=== PATIENT | female | born 1950 | race Caucasian/White ===

== ENCOUNTER 2018-07-28 16:57 | Emergency (ER) | payer OTHER ==
--- NOTE | 2018-07-28 17:26 | EDPHY ---
H & P Time Seen by Provider: 07/28/18 17:20 HPI/ROS: Chief complaint. Abdominal pain HPI. 60-year-old female presents to the emergency department low abdominal pain for 2 days. Gradually worsening. She has a history of diverticulitis and at feel similar. She describes the discomfort as sharp and pressure. It is both right and left lower quadrants but somewhat worse on the right. No radiation of the back. She has been running a fever. No chest pain or shortness of breath. No vomiting. Positive diarrhea. No urinary symptoms. ROS 10 systems were reviewed and negative with the exception of the elements mentioned in the history of present illness Past Medical/Surgical History: Diverticulitis, hypothyroid Social History: , nonsmoker, no alcohol Smoking Status: Never smoked Physical Exam: General Appearance: Alert pleasant well-developed female mild distress vital signs are stable Eyes: Pupils equal and round no pallor or injection. ENT, Mouth: Mucous membranes are moist. Respiratory: There are no retractions, lungs are clear to auscultation. Cardiovascular: Regular rate and rhythm. Gastrointestinal: Abdomen is soft with tenderness in both the right and left lower quadrants. No masses. Normal bowel sounds. Somewhat more tenderness on the right. Neurological: Awake and alert, sensory and motor exams grossly normal. Skin: Warm and dry, no rashes. Musculoskeletal: Neck is supple nontender. Extremities symmetrical, full range of motion. Psychiatric: Patient is oriented X 3, there is no agitation. Constitutional: Initial Vital Signs Temperature (C) 36.5 C 07/28/18 17:23 Heart Rate 87 07/28/18 17:23 Respiratory Rate 16 07/28/18 17:23 Blood Pressure 129/82 H 07/28/18 17:23 O2 Sat (%) 96 07/28/18 17:23 O2 Delivery Mode Room Air Allergies/Adverse Reactions: gluten Allergy (Verified 07/28/18 17:16) Milk Containing Products [dairy] Allergy (Verified 07/28/18 17:16) shellfish derived Allergy (Verified 07/28/18 17:16) tetracycline Allergy (Verified 07/28/18 17:16) Home Medications: Medication Instructions Recorded Story Thyroid 07/28/18 Ciprofloxacin [Cipro] 500 mg PO BID #20 tab 07/28/18 metroNIDAZOLE [Metronidazole] 500 mg PO TID #30 tablet 07/28/18 Medical Decision Making - Diagnostics Imaging Results: Imaging Impressions Abdomen CT 07/28/18 17:40 Impression: Acute sigmoid diverticulitis without evidence for proximal bowel obstruction or perforation. Results discussed with Dr. Onesimo Horn at 6:33 PM. General information for patients regarding this examination can be found at [email or web address]. If you have questions or comments about this report, please contact me at [phone] (hospital) or [phone] (cell). CT abdomen pelvis with IV contrast shows acute sigmoid diverticulitis. No perforation or abscess. Severe spinal stenosis at L4-5 Procedures: IV normal saline ED Course/Re-evaluation: Re-evaluation 6:45 p.m.. Patient and I discussed imaging and lab results. We discussed treatment plan. Patient is comfortable and would prefer to be treated as an outpatient. We discussed treatment plan including criteria for return and importance of follow-up and further evaluation. She expresses understanding and agreement Differential Diagnosis: I considered diverticulitis, small-bowel obstruction, appendicitis - Data Points Laboratory Results: Laboratory Results 07/28/18 17:26 07/28/18 17:26 07/28/18 07/28/18 07/28/18 18:24 17:32 17:26 WBC RBC Hgb POC Hgb 14.3 gm/dL gm/dL (12.6-16.3) Hct POC Hct 42 % % (38-47) MCV MCH MCHC RDW Plt Count MPV Neut % (Auto) Lymph % (Auto) [place] % (Auto) Eos % (Auto) Baso % (Auto) Nucleat RBC Rel Count Absolute Neuts (auto) Absolute Lymphs (auto) Absolute Monos (auto) Absolute Eos (auto) Absolute Basos (auto) Absolute Nucleated RBC Immature Gran % Immature Gran # POC Sodium 140 mEq/L mEq/L (135-145) Sodium 135 mEq/L mEq/L (135-145) POC Potassium 3.9 mEq/L mEq/L (3.3-5.0) Potassium 4.3 mEq/L mEq/L (3.5-5.2) POC Chloride 104 mEq/L mEq/L (97-110) Chloride 104 mEq/L mEq/L (97-110) Carbon Dioxide 21 mEq/l L mEq/l (22-31) POC Total CO2 22 mEq/L mEq/L (22-31) Anion Gap 10 mEq/L mEq/L (6-14) POC BUN 9 mg/dL mg/dL (7-23) BUN 11 mg/dL mg/dL (7-23) Creatinine 0.6 mg/dL mg/dL (0.6-1.0) POC Creatinine 0.6 mg/dL mg/dL (0.6-1.0) Estimated GFR > 60 Glucose 100 mg/dL mg/dL (70-100) POC Glucose 105 mg/dL H mg/dL (70-100) Calcium 9.5 mg/dL mg/dL (8.5-10.4) Urine Color PALE YELLOW Urine Appearance CLEAR Urine pH 7.0 (5.0-7.5) Ur Specific [place] 1.019 (1.002-1.030) Urine Protein NEGATIVE (NEGATIVE) Urine Ketones TRACE H (NEGATIVE) Urine Blood 1+ H (NEGATIVE) Urine Nitrate NEGATIVE (NEGATIVE) Urine Bilirubin NEGATIVE (NEGATIVE) Urine Urobilinogen NEGATIVE EU EU (0.2-1.0) Ur Leukocyte Esterase NEGATIVE (NEGATIVE) Urine RBC 1-3 /hpf /hpf (0-3) Urine WBC 1-3 /hpf /hpf (0-3) Ur Epithelial Cells TRACE /lpf /lpf (NONE-1+) Urine Glucose NEGATIVE (NEGATIVE) 07/28/18 17:26 WBC 13.89 10^3/uL H 10^3/uL (3.80-9.50) RBC 4.40 10^6/uL 10^6/uL (4.18-5.33) Hgb 13.6 g/dL g/dL (12.6-16.3) POC Hgb Hct 40.4 % % (38.0-47.0) POC Hct MCV 91.8 fL fL (81.5-99.8) MCH 30.9 pg pg (27.9-34.1) MCHC 33.7 g/dL g/dL (32.4-36.7) RDW 13.1 % % (11.5-15.2) Plt Count 242 10^3/uL 10^3/uL (150-400) MPV 8.8 fL fL (8.7-11.7) Neut % (Auto) 65.1 % % (39.3-74.2) Lymph % (Auto) 23.5 % % (15.0-45.0) [place] % (Auto) 10.2 % % (4.5-13.0) Eos % (Auto) 0.6 % % (0.6-7.6) Baso % (Auto) 0.2 % L % (0.3-1.7) Nucleat RBC Rel Count 0.0 % % (0.0-0.2) Absolute Neuts (auto) 9.03 10^3/uL H 10^3/uL (1.70-6.50) Absolute Lymphs (auto) 3.27 10^3/uL H 10^3/uL (1.00-3.00) Absolute Monos (auto) 1.42 10^3/uL H 10^3/uL (0.30-0.80) Absolute Eos (auto) 0.09 10^3/uL 10^3/uL (0.03-0.40) Absolute Basos (auto) 0.03 10^3/uL 10^3/uL (0.02-0.10) Absolute Nucleated RBC 0.00 10^3/uL 10^3/uL (0-0.01) Immature Gran % 0.4 % % (0.0-1.1) Immature Gran # 0.05 10^3/uL 10^3/uL (0.00-0.10) POC Sodium Sodium POC Potassium Potassium POC Chloride Chloride Carbon Dioxide POC Total CO2 Anion Gap POC BUN BUN Creatinine POC Creatinine Estimated GFR Glucose POC Glucose Calcium Urine Color Urine Appearance Urine pH Ur Specific [place] Urine Protein Urine Ketones Urine Blood Urine Nitrate Urine Bilirubin Urine Urobilinogen Ur Leukocyte Esterase Urine RBC Urine WBC Ur Epithelial Cells Urine Glucose Medications Given: Discontinued Medications Sodium Chloride (Ns) 1,000 mls @ 0 mls/hr IV EDNOW ONE; Wide Open PRN Reason: Protocol Stop: 07/28/18 17:41 Last Admin: 07/28/18 17:46 Dose: 1,000 mls Point of Care Test Results: Chemistry 07/28/18 17:32 POC Sodium 140 mEq/L mEq/L (135-145) POC Potassium 3.9 mEq/L mEq/L (3.3-5.0) POC Chloride 104 mEq/L mEq/L (97-110) POC Total CO2 22 mEq/L mEq/L (22-31) POC BUN 9 mg/dL mg/dL (7-23) POC Creatinine 0.6 mg/dL mg/dL (0.6-1.0) POC Glucose 105 mg/dL H mg/dL (70-100) ISTAT H&H 07/28/18 17:32 POC Hgb 14.3 gm/dL gm/dL (12.6-16.3) POC Hct 42 % % (38-47) Departure - Departure Disposition: Home, Routine, Self-Care Clinical Impression: Diverticulitis Condition: Good Instructions: Diverticulitis (ED), Diverticulitis Diet (ED) Additional Instructions: Drink plenty of fluids and stay hydrated. Cipro twice daily for 10 days Metronidazole 1 pill 3 times daily for 10 days. Return for worsening pain, fever, vomiting Recheck in 2 days if not improving Referrals: NONE *PRIMARY CARE P,. [Primary Care Provider] - As per Instructions Jimi Bravo MD [Medical Doctor] - 2-3 days, if not improved Prescriptions: Ciprofloxacin [Cipro] 500 mg PO BID #20 tab metroNIDAZOLE [Metronidazole] 500 mg PO TID #30 tablet
[2018-07-28] MEDS ORDERED: NS 1,000 ML IV ONE (17:40)
[2018-07-28 17:46] LABS: PLATELET COUNT 242 10^3/uL (150-400)
[2018-07-28] MEDS ORDERED: IOPAMIDOL (ISOVUE-300) 100 ML BTL ONE (17:54)
[2018-07-28] MEDS ORDERED: ERTAPENEM 1 GM in NS 100 ML IV ONE (18:48)
[2018-07-28] MEDS ORDERED: ACETAMINOPHEN 500 MG TAB PO ONE (19:26)
[2018-07-28 20:08] VITALS: BP 122/71
== END 2018-07-28 20:08 | disposition home or self-care (01) ==
LOC: EDBD 16:57
DX: K57.32 Diverticulitis of large intestine without perforation or abscess without bleeding (principal); E86.9 Volume depletion, unspecified
CPT/HCPCS: 82435-PO; 82565-PO; 82947-PO; 84132-PO; 84295-PO; 84520-PO; 85014-ER; 96365; J1335; Q9967